=== PATIENT | female | born 1990 | race Caucasian/White ===

== ENCOUNTER 2022-12-02 07:21 | Emergency (ER) | payer BC ==
[~2022-12-02] VITALS: Wt 71.8 kg
[2022-12-02 07:40] LABS: BILIRUBIN Negative (Negative); BLOOD Trace-Lysed (Negative); CLARITY Cloudy (Clear); COLOR Yellow (Yellow); GLUCOSE Negative (Negative); KETONE Negative (Negative); LEUKO ESTERASE 2+ (Negative); NITRITE Negative (Negative); PH 5.5 (4.5-8.0)
[2022-12-02 07:47] LABS: URINE AMPHETAMINES Negative (1000ng/ml); URINE BARBITURATES Negative (200ng/ml); URINE BENZODIAZEPINES Positive (200ng/ml); URINE CANNABINOIDS (THC) Positive (50ng/ml); URINE COCAINE Negative (300ng/ml); URINE METHADONE Negative (300ng/ml); URINE OPIATES Negative (300ng/ml); URINE PHENCYCLIDINE Negative (25ng/ml)
[2022-12-02 07:53] LABS: WBC TNTC wbc/hpf (0-5)
[2022-12-02 08:16] LABS: BASO % 0.3 % (0.0-1.0); EOS # 0.1 10*3/uL (0.0-0.4); EOS % 1.3 % (1.0-4.0); HEMATOCRIT 37.3 % (37.0-47.0); LYMPH # 1.7 10*3/uL (1.3-4.4); LYMPH % 18.3 % (27.0-41.0); MEAN CELL VOLUME 90.3 fl (81.0-99.0); MEAN CORPUSCULAR HGB 29.5 pg (27.0-31.0); MEAN CORPUSCULAR HGB CONC 32.7 g/dl (33.0-37.0); MEAN PLATELET VOLUME 10.3 fl (9.6-12.3); MONO # 0.8 10*3/uL (0.1-1.0); MONO % 8.7 % (3.0-9.0); NEUT # 6.6 10*3/uL (2.3-7.9); NEUT % 71.3 % (47.0-73.0); PLATELET COUNT AUTOMATED 310 10*3/uL (130-400); RED BLOOD COUNT 4.13 10*6/uL (4.10-5.10); RED CELL DISTRI WIDTH 12.7 % (0-14.5); WHITE BLOOD COUNT 9.2 10*3/uL (4.8-10.8)
[2022-12-02 08:47] LABS: ALKALINE PHOSPHATASE 84 U/L (46-116); BUN 10 mg/dl (9-23); CHLORIDE 106 mmol/L (98-107); POTASSIUM 3.6 mmol/L (3.4-5.1); SGPT/ALT 24 U/L (10-49); TOTAL PROTEIN 7.3 gm/dL (6.0-8.0)
[2022-12-02 08:53] LABS: ETHYL ALCOHOL < 3.0 mg/dl (<3)
== END 2022-12-02 18:28 ==
LOC: ED 07:21
PROVIDERS: Student in an Organized Health Care Education/Training Program
DX: F29 Unspecified psychosis not due to a substance or known physiological condition (principal); Z88.6 Allergy status to analgesic agent; Z88.1 Allergy status to other antibiotic agents; Z88.0 Allergy status to penicillin; Z91.018 Allergy to other foods; Z88.8 Allergy status to other drugs, medicaments and biological substances; Z79.899 Other long term (current) drug therapy; Z20.822 Contact with and (suspected) exposure to COVID-19

== ENCOUNTER 2022-12-15 13:31 | Emergency (ER) | payer BC ==
[~2022-12-15] VITALS: Ht 165.1 cm; Wt 63.5 kg
[2022-12-15 15:32] LABS: BASO % 0.4 % (0.0-1.0); EOS # 0.3 10*3/uL (0.0-0.4); EOS % 3.4 % (1.0-4.0); HEMATOCRIT 36.2 % (37.0-47.0); LYMPH # 2.3 10*3/uL (1.3-4.4); LYMPH % 25.5 % (27.0-41.0); MEAN CELL VOLUME 88.7 fl (81.0-99.0); MEAN CORPUSCULAR HGB 29.4 pg (27.0-31.0); MEAN CORPUSCULAR HGB CONC 33.1 g/dl (33.0-37.0); MEAN PLATELET VOLUME 10.5 fl (9.6-12.3); MONO # 0.7 10*3/uL (0.1-1.0); MONO % 7.5 % (3.0-9.0); NEUT # 5.7 10*3/uL (2.3-7.9); PLATELET COUNT AUTOMATED 285 10*3/uL (130-400); RED BLOOD COUNT 4.08 10*6/uL (4.10-5.10); RED CELL DISTRI WIDTH 12.6 % (0-14.5); WHITE BLOOD COUNT 9.1 10*3/uL (4.8-10.8)
[2022-12-15] MEDS ORDERED: TRAMADOL HCL50 MG PO (15:42)
[2022-12-15] MEDS ORDERED: ABILIFY10 MG PO (15:42)
[2022-12-15] MEDS ORDERED: REGLAN10 M1 PO (15:42)
[2022-12-15 15:55] LABS: ALKALINE PHOSPHATASE 83 U/L (46-116); BUN 17 mg/dl (9-23); CHLORIDE 104 mmol/L (98-107); POTASSIUM 3.7 mmol/L (3.4-5.1); SGPT/ALT 27 U/L (10-49)
== END 2022-12-15 16:28 | disposition home or self-care (01) ==
LOC: ED 13:31
PROVIDERS: Emergency Medicine
DX: R10.9 Unspecified abdominal pain (principal); R11.2 Nausea with vomiting, unspecified; R19.7 Diarrhea, unspecified; Z88.8 Allergy status to other drugs, medicaments and biological substances; Z88.6 Allergy status to analgesic agent; Z88.0 Allergy status to penicillin; Z88.1 Allergy status to other antibiotic agents; Z91.018 Allergy to other foods

== ENCOUNTER 2022-12-19 14:33 | Emergency (ER) | payer BC ==
[~2022-12-19] VITALS: Ht 162.5 cm; Wt 65.8 kg
[~2022-12-19 14:33] MED LIST: ABILIFY10 MG PO; REGLAN10 M1 PO; TRAMADOL HCL50 MG PO
[2022-12-19] MEDS ORDERED: ONDANSETRON4 MG SL (15:52)
[2022-12-19] MEDS ORDERED: TRAMADOL HCL50 MG PO (15:52)
== END 2022-12-19 15:59 | disposition home or self-care (01) ==
LOC: ED 14:33
DX: K50.90 Crohn's disease, unspecified, without complications (principal); Z76.5 Malingerer [conscious simulation]; Z88.6 Allergy status to analgesic agent; Z88.0 Allergy status to penicillin; Z88.1 Allergy status to other antibiotic agents; Z91.018 Allergy to other foods; Z88.8 Allergy status to other drugs, medicaments and biological substances; Z98.890 Other specified postprocedural states

== ENCOUNTER 2023-02-05 17:43 | Emergency (ER) | payer BC ==
[~2023-02-05] VITALS: Ht 165.1 cm; Wt 68.0 kg
[~2023-02-05 17:43] MED LIST changes: +ONDANSETRON4 MG SL
[2023-02-05] MEDS ORDERED: NORVASC5 MG PO (18:46)
[2023-02-05] MEDS ORDERED: TYLENOL EXTRA500 MG PO (18:46)
[2023-02-05] MEDS ORDERED: CYCLOBENZAPRINE10 MG PO (18:47)
[2023-02-05] MEDS ORDERED: PANTOPRAZOLE SO40 MG PO (18:47)
[2023-02-05] MEDS ORDERED: ONDANSETRON8 MG PO (18:47)
[2023-02-05] MEDS ORDERED: CIPRO500 MG PO (18:48)
[2023-02-05] MEDS ORDERED: COMPAZINE5 M3 PO (18:48)
[2023-02-05] MEDS ORDERED: Carafate1 GM PO (18:48)
[2023-02-05] MEDS ORDERED: TRAMADOL HCL E200 MG PO (18:48)
[2023-02-05] MEDS ORDERED: RITALIN LA20 MG PO (18:49)
[2023-02-05] MEDS ORDERED: VENT7GM INH (18:49)
== END 2023-02-05 20:37 | disposition left against medical advice (07) ==
LOC: ED 17:43
DX: K62.5 Hemorrhage of anus and rectum (principal); R19.7 Diarrhea, unspecified; R11.10 Vomiting, unspecified; Z53.21 Procedure and treatment not carried out due to patient leaving prior to being seen by health care provider

== ENCOUNTER 2023-02-06 21:34 | Emergency (ER) | payer BC ==
[~2023-02-06] VITALS: Ht 167.6 cm; Wt 69.4 kg
[~2023-02-06 21:34] MED LIST changes: +CIPRO500 MG PO; +COMPAZINE5 M3 PO; +CYCLOBENZAPRINE10 MG PO; +Carafate1 GM PO; +NORVASC5 MG PO; +ONDANSETRON8 MG PO; +PANTOPRAZOLE SO40 MG PO; +RITALIN LA20 MG PO; +TRAMADOL HCL E200 MG PO; +TYLENOL EXTRA500 MG PO; +VENT7GM INH
== END 2023-02-06 22:53 | disposition left against medical advice (07) ==
LOC: ED 21:34
DX: Z33.1 Pregnant state, incidental (principal); M25.551 Pain in right hip; Z88.8 Allergy status to other drugs, medicaments and biological substances; Z88.6 Allergy status to analgesic agent; Z88.0 Allergy status to penicillin; Z88.1 Allergy status to other antibiotic agents; Z91.018 Allergy to other foods

== ENCOUNTER → 2023-02-14 | Outpatient (CLI) | payer BC | END | disposition home or self-care (01) | LOC: US 13:05 | PROVIDERS: ATTEND Family Medicine | DX: O09.91 Supervision of high risk pregnancy, unspecified, first trimester (principal); Z3A.09 9 weeks gestation of pregnancy ==

== ENCOUNTER → 2023-05-02 | Outpatient (CLI) | payer MEDICAID ==
[2023-05-02 10:26] LABS: HEMATOCRIT 37.6 % (37.0-47.0); MEAN CELL VOLUME 93.3 fl (81.0-99.0); MEAN CORPUSCULAR HGB 30.5 pg (27.0-31.0); MEAN CORPUSCULAR HGB CONC 32.7 g/dl (33.0-37.0); MEAN PLATELET VOLUME 10.3 fl (9.6-12.3); RED BLOOD COUNT 4.03 10*6/uL (4.10-5.10); RED CELL DISTRI WIDTH 12.6 % (0-14.5); WHITE BLOOD COUNT 10.7 10*3/uL (4.8-10.8)
[2023-05-02 11:02] LABS: ALKALINE PHOSPHATASE 78 U/L (46-116); BUN 5 mg/dl (9-23); CHLORIDE 104 mmol/L (98-107); POTASSIUM 4.2 mmol/L (3.4-5.1); SGPT/ALT 12 U/L (5-49); TOTAL PROTEIN 7.3 gm/dL (6.0-8.0)
== END | disposition home or self-care (01) ==
LOC: LAB 10:06
PROVIDERS: ATTEND Family Medicine
DX: R10.9 Unspecified abdominal pain (principal); R53.83 Other fatigue

== ENCOUNTER → 2023-08-30 | Outpatient (CLI) | payer MEDICAID ==
[2023-08-30 11:53] LABS: HEMATOCRIT 37.8 % (37.0-47.0); MEAN CELL VOLUME 86.5 fl (81.0-99.0); MEAN CORPUSCULAR HGB CONC 31.2 g/dl (33.0-37.0); MEAN PLATELET VOLUME 9.2 fl (9.6-12.3); RED BLOOD COUNT 4.37 10*6/uL (4.10-5.10); RED CELL DISTRI WIDTH 13.1 % (0-14.5); WHITE BLOOD COUNT 8.6 10*3/uL (4.8-10.8)
[2023-08-30 12:20] LABS: ALKALINE PHOSPHATASE 291 U/L (46-116); BUN 15 mg/dl (9-23); CHLORIDE 106 mmol/L (98-107); POTASSIUM 3.9 mmol/L (3.4-5.1); SGPT/ALT 31 U/L (5-49); TOTAL PROTEIN 7.7 gm/dL (6.0-8.0)
[2023-08-30 13:22] LABS: VITAMIN D, 25-HYDROXY 25.6 ng/mL (30-100)
== END ==
LOC: LAB 11:06
PROVIDERS: ATTEND Family Medicine
DX: E55.9 Vitamin D deficiency, unspecified (principal); E53.8 Deficiency of other specified B group vitamins; D64.9 Anemia, unspecified

== ENCOUNTER 2023-11-06 19:26 | Emergency (ER) | payer MEDICAID ==
[~2023-11-06] VITALS: Ht 165.1 cm; Wt 59.9 kg
[2023-11-06] MEDS ORDERED: FAMOTIDINE 50 ML IV ONE ×2 (19:35→19:40)
[2023-11-06] MEDS ORDERED: methylPREDNISolone sod succ 125 MG VIAL IV ONE (19:35)
[2023-11-06] MEDS ORDERED: SODIUM CHLORIDE 0.9% 1,000 ML IV ONE (19:35)
[2023-11-06] MEDS ORDERED: DIAZEPAM 5 MG TAB PO ONE (20:15)
[2023-11-06] MEDS ORDERED: LORazepam 1 MG TAB PO ONE (20:15)
== END 2023-11-06 21:25 | disposition home or self-care (01) ==
LOC: ED 19:26
DX: T63.441A Toxic effect of venom of bees, accidental (unintentional), initial encounter (principal); F41.9 Anxiety disorder, unspecified; Z53.29 Procedure and treatment not carried out because of patient's decision for other reasons; Z88.6 Allergy status to analgesic agent; Z88.0 Allergy status to penicillin; Z88.1 Allergy status to other antibiotic agents; Z88.8 Allergy status to other drugs, medicaments and biological substances; Z91.018 Allergy to other foods; Y92.89 Other specified places as the place of occurrence of the external cause

== ENCOUNTER → 2023-11-26 | Outpatient (CLI) | payer MEDICAID ==
[2023-11-26 17:09] LABS: HEMATOCRIT 36.6 % (37.0-47.0); MEAN CELL VOLUME 86.1 fl (81.0-99.0); MEAN CORPUSCULAR HGB 27.8 pg (27.0-31.0); MEAN CORPUSCULAR HGB CONC 32.2 g/dl (33.0-37.0); RED BLOOD COUNT 4.25 10*6/uL (4.10-5.10); RED CELL DISTRI WIDTH 15.9 % (0-14.5); WHITE BLOOD COUNT 9.6 10*3/uL (4.8-10.8)
[2023-11-26 17:35] LABS: ALKALINE PHOSPHATASE 78 U/L (46-116); BUN 16 mg/dl (9-23); CHLORIDE 104 mmol/L (98-107); POTASSIUM 3.9 mmol/L (3.4-5.1); SGPT/ALT 29 U/L (5-49); TOTAL PROTEIN 8.1 gm/dL (6.0-8.0)
[2023-11-26 17:40] LABS: BETA-HCG, QUANT < 3.0 mIU/mL (3-10)
== END | disposition home or self-care (01) ==
LOC: LAB 16:44
PROVIDERS: ATTEND Family Medicine
DX: Z32.01 Encounter for pregnancy test, result positive (principal)

== ENCOUNTER → 2023-11-28 | Outpatient (CLI) | payer MEDICAID ==
[~2023-11-28] MED LIST changes: +ATIVAN1 MG PO; +FAMOTIDINE20 M1 PO; +INTUNIV1 MG PO; +NIFEDIPINE ER30 M1 PO; +OMEPRAZOLE40 MG PO; +TRILEPTAL150 MG PO
[2023-11-28 14:57] LABS: HEMATOCRIT 38.6 % (37.0-47.0); MEAN CORPUSCULAR HGB CONC 31.6 g/dl (33.0-37.0); MEAN PLATELET VOLUME 10.3 fl (9.6-12.3); RED BLOOD COUNT 4.35 10*6/uL (4.10-5.10); RED CELL DISTRI WIDTH 15.1 % (0-14.5); WHITE BLOOD COUNT 9.7 10*3/uL (4.8-10.8)
[2023-11-28 14:58] LABS: MEAN CELL VOLUME 88.7 fl (81.0-99.0)
[2023-11-28 15:28] LABS: ALKALINE PHOSPHATASE 78 U/L (46-116); BUN 13 mg/dl (9-23); CHLORIDE 106 mmol/L (98-107); SGPT/ALT 18 U/L (5-49); TOTAL PROTEIN 8.2 gm/dL (6.0-8.0)
[2023-11-28 15:29] LABS: BETA-HCG, QUANT < 3.0 mIU/mL (3-10)
== END | disposition home or self-care (01) ==
LOC: LAB 14:11
PROVIDERS: ATTEND Family Medicine
DX: Z32.00 Encounter for pregnancy test, result unknown (principal)

== ENCOUNTER 2023-11-30 17:45 | Emergency (ER) | payer MEDICAID ==
[~2023-11-30] VITALS: Wt 59.0 kg
[~2023-11-30 17:45] MED LIST changes: -ATIVAN1 MG PO; -FAMOTIDINE20 M1 PO; -INTUNIV1 MG PO; -NIFEDIPINE ER30 M1 PO; -OMEPRAZOLE40 MG PO; -TRILEPTAL150 MG PO
[2023-11-30] MEDS ORDERED: DIAZEPAM 10 MG/2 ML SYR IM PRN (18:05)
[2023-11-30] MEDS ORDERED: diphenhydrAMINE hydrochloride 50 MG/ML VIAL IM PRN (18:05)
[2023-11-30 18:26] LABS: BASO # 0.1 10*3/uL (0.0-0.1); BASO % 0.6 % (0.0-1.0); EOS # 0.2 10*3/uL (0.0-0.4); EOS % 2.5 % (1.0-4.0); HEMATOCRIT 34.8 % (37.0-47.0); LYMPH # 2.1 10*3/uL (1.3-4.4); LYMPH % 25.1 % (27.0-41.0); MEAN CELL VOLUME 91.8 fl (81.0-99.0); MEAN CORPUSCULAR HGB 27.4 pg (27.0-31.0); MEAN CORPUSCULAR HGB CONC 29.9 g/dl (33.0-37.0); MEAN PLATELET VOLUME 10.8 fl (9.6-12.3); MONO # 0.9 10*3/uL (0.1-1.0); MONO % 10.2 % (3.0-9.0); NEUT # 5.2 10*3/uL (2.3-7.9); NEUT % 61.4 % (47.0-73.0); PLATELET COUNT AUTOMATED 279 10*3/uL (130-400); RED BLOOD COUNT 3.79 10*6/uL (4.10-5.10); RED CELL DISTRI WIDTH 14.8 % (0-14.5); WHITE BLOOD COUNT 8.4 10*3/uL (4.8-10.8)
[2023-11-30 18:38] LABS: ACT PARTIAL THROMBO TIME 26.9 SECONDS (20.0-32.1)
[2023-11-30 18:54] LABS: ALKALINE PHOSPHATASE 70 U/L (46-116); BUN 15 mg/dl (9-23); CHLORIDE 110 mmol/L (98-107); CPK 107 U/L (34-171); LIPASE 28 U/L (12-53); POTASSIUM 3.5 mmol/L (3.4-5.1); SGPT/ALT 11 U/L (5-49); TOTAL PROTEIN 7.5 gm/dL (6.0-8.0)
[2023-11-30 18:59] LABS: ETHYL ALCOHOL < 3.0 mg/dl (<3)
[2023-11-30] MEDS ORDERED: Haloperidol Lactate 5 MG/ML AMP IM ONE (19:10)
[2023-11-30] MEDS ORDERED: TRILEPTAL150 MG PO (20:07)
[2023-11-30] MEDS ORDERED: INTUNIV1 MG PO (20:07)
[2023-11-30] MEDS ORDERED: ATIVAN1 MG PO (20:08)
[2023-11-30] MEDS ORDERED: NIFEDIPINE ER30 M1 PO (20:09)
[2023-11-30] MEDS ORDERED: OMEPRAZOLE40 MG PO (20:11)
[2023-11-30] MEDS ORDERED: FAMOTIDINE20 M1 PO (20:11)
[2023-12-01 06:50] LABS: BILIRUBIN Negative (Negative); BLOOD Negative (Negative); CLARITY Clear (Clear); COLOR Yellow (Yellow); GLUCOSE Negative (Negative); KETONE Negative (Negative); LEUKO ESTERASE Trace (Negative); NITRITE Negative (Negative); PH 5.5 (4.5-8.0); SPECIFIC GRAVITY 1.025 (1.001-1.030)
[2023-12-01 06:58] LABS: URINE AMPHETAMINES Positive (1000ng/ml); URINE BARBITURATES Negative (200ng/ml); URINE BENZODIAZEPINES Positive (200ng/ml); URINE CANNABINOIDS (THC) Positive (50ng/ml); URINE COCAINE Negative (300ng/ml); URINE METHADONE Negative (300ng/ml); URINE OPIATES Negative (300ng/ml); URINE PHENCYCLIDINE Negative (25ng/ml)
[2023-12-01 09:04] LABS: BACTERIA 1+; MUCOUS 2+; WBC 16-20 wbc/hpf (0-5)
== END 2023-12-01 13:04 | disposition home or self-care (01) ==
LOC: ED 17:45
PROVIDERS: Internal Medicine
DX: R41.82 Altered mental status, unspecified (principal); F15.10 Other stimulant abuse, uncomplicated; Z88.6 Allergy status to analgesic agent; Z88.0 Allergy status to penicillin; Z88.1 Allergy status to other antibiotic agents; Z91.018 Allergy to other foods; Z88.8 Allergy status to other drugs, medicaments and biological substances; Z88.5 Allergy status to narcotic agent

== ENCOUNTER 2024-01-05 13:59 | Emergency (ER) | payer MEDICAID ==
[~2024-01-05] VITALS: Ht 165.1 cm; Wt 68.0 kg
[~2024-01-05 13:59] MED LIST changes: +ATIVAN1 MG PO; +FAMOTIDINE20 M1 PO; +INTUNIV1 MG PO; +NIFEDIPINE ER30 M1 PO; +OMEPRAZOLE40 MG PO; +TRILEPTAL150 MG PO
[2024-01-05 14:42] LABS: BILIRUBIN Negative (Negative); BLOOD 2+ (Negative); CLARITY Turbid (Clear); COLOR Yellow (Yellow); GLUCOSE Negative (Negative); KETONE Negative (Negative); LEUKO ESTERASE 3+ (Negative); NITRITE Negative (Negative); PH 5.5 (4.5-8.0); SPECIFIC GRAVITY 1.015 (1.001-1.030); UROBILINOGEN 0.2 E.U./dl (0.0-1.0)
[2024-01-05 14:53] LABS: WBC TNTC wbc/hpf (0-5)
[2024-01-05 15:09] LABS: BASO # 0.1 10*3/uL (0.0-0.1); BASO % 0.5 % (0.0-1.0); EOS # 0.5 10*3/uL (0.0-0.4); EOS % 4.6 % (1.0-4.0); HEMATOCRIT 39.2 % (37.0-47.0); LYMPH # 1.9 10*3/uL (1.3-4.4); LYMPH % 16.7 % (27.0-41.0); MEAN CELL VOLUME 91.6 fl (81.0-99.0); MEAN CORPUSCULAR HGB 28.5 pg (27.0-31.0); MEAN CORPUSCULAR HGB CONC 31.1 g/dl (33.0-37.0); MEAN PLATELET VOLUME 10.5 fl (9.6-12.3); MONO # 0.9 10*3/uL (0.1-1.0); MONO % 7.4 % (3.0-9.0); NEUT # 8.2 10*3/uL (2.3-7.9); NEUT % 70.5 % (47.0-73.0); PLATELET COUNT AUTOMATED 267 10*3/uL (130-400); RED BLOOD COUNT 4.28 10*6/uL (4.10-5.10); RED CELL DISTRI WIDTH 13.3 % (0-14.5); WHITE BLOOD COUNT 11.6 10*3/uL (4.8-10.8)
[2024-01-05 15:26] LABS: ALKALINE PHOSPHATASE 74 U/L (46-116); BUN 15 mg/dl (9-23); CHLORIDE 108 mmol/L (98-107); POTASSIUM 3.8 mmol/L (3.4-5.1); SGPT/ALT 11 U/L (5-49); TOTAL PROTEIN 7.6 gm/dL (6.0-8.0)
[2024-01-05] MEDS ORDERED: PYRIDIUM100 MG PO (15:42)
[2024-01-05] MEDS ORDERED: SEPTDS PO (15:42)
[2024-01-08] MEDS ORDERED: CLARITIN10 MG PO (14:27)
[2024-01-08] MEDS ORDERED: XYZAL PO (14:28)
== END 2024-01-05 15:45 | disposition home or self-care (01) ==
LOC: ED 13:59
PROVIDERS: Physician Assistant Medical
DX: N39.0 Urinary tract infection, site not specified (principal); Z88.6 Allergy status to analgesic agent; Z88.0 Allergy status to penicillin; Z88.1 Allergy status to other antibiotic agents; Z91.018 Allergy to other foods; Z88.5 Allergy status to narcotic agent; Z88.8 Allergy status to other drugs, medicaments and biological substances

== ENCOUNTER → 2024-01-12 | Day surgery (SDC) | payer MEDICAID ==
[~2024-01-12] VITALS: Ht 165.1 cm; Wt 65.8 kg
[2024-01-12] VITALS (7 sets, daily range): BP systolic 126–151; BP diastolic 80–98
[~2024-01-12] MED LIST changes: +CLARITIN10 MG PO; +HYDROmorphONE Hydrochloride 0.5 MG/0.5 ML SYRINGE IV SCH; +HYDROmorphONE Hydrochloride 0.5 MG/0.5 ML SYRINGE ONE; +Ketorolac Tromethamine 30 MG/ML VIAL IV ONE; +Lactated Ringer's Solution 1,000 ML IV ONE; +Lactated Ringer's Solution 1,000 ML IV SCH; +Lidocaine Hydrochloride 5 ML VIAL IV ONE; +Midazolam Hydrochloride 2 MG/2 ML VIAL IV ONE; +OXYCODONE5 M1 PO; +Ondansetron Hydrochloride 4 MG/2 ML VIAL IV ONE; +PROPOFOL 200 MG/20 ML VIAL IV ONE; +PYRIDIUM100 MG PO; +ROCURONIUM BROMIDE 50 MG/5 ML SYRINGE IV ONE; +SEPTDS PO; +SEVOFLURANE 250 ML BOT INH ONE; +SUGAMMADEX SODIUM 200 MG/2 ML VIAL IV ONE; +XYZAL PO; +fentaNYL CITRATE 100 MCG/2 ML VIAL IV ONE
== END | disposition home or self-care (01) ==
LOC: SDC 01-08 09:30
PROVIDERS: ATTEND Obstetrics & Gynecology
DX: Z30.2 Encounter for sterilization (principal); I10 Essential (primary) hypertension; G43.109 Migraine with aura, not intractable, without status migrainosus; F41.9 Anxiety disorder, unspecified; G47.30 Sleep apnea, unspecified; Z87.440 Personal history of urinary (tract) infections; Z91.018 Allergy to other foods; Z91.040 Latex allergy status; Z88.0 Allergy status to penicillin; Z88.1 Allergy status to other antibiotic agents; Z88.8 Allergy status to other drugs, medicaments and biological substances; Z79.899 Other long term (current) drug therapy; Z98.890 Other specified postprocedural states

== ENCOUNTER 2024-01-15 17:01 | Emergency (ER) | payer MEDICAID ==
[~2024-01-15] VITALS: Ht 165.1 cm; Wt 65.8 kg
[~2024-01-15 17:01] MED LIST changes: -HYDROmorphONE Hydrochloride 0.5 MG/0.5 ML SYRINGE IV SCH; -HYDROmorphONE Hydrochloride 0.5 MG/0.5 ML SYRINGE ONE; -Ketorolac Tromethamine 30 MG/ML VIAL IV ONE; -Lactated Ringer's Solution 1,000 ML IV ONE; -Lactated Ringer's Solution 1,000 ML IV SCH; -Lidocaine Hydrochloride 5 ML VIAL IV ONE; -Midazolam Hydrochloride 2 MG/2 ML VIAL IV ONE; -OXYCODONE5 M1 PO; -Ondansetron Hydrochloride 4 MG/2 ML VIAL IV ONE; -PROPOFOL 200 MG/20 ML VIAL IV ONE; -ROCURONIUM BROMIDE 50 MG/5 ML SYRINGE IV ONE; -SEVOFLURANE 250 ML BOT INH ONE; -SUGAMMADEX SODIUM 200 MG/2 ML VIAL IV ONE; -fentaNYL CITRATE 100 MCG/2 ML VIAL IV ONE
[2024-01-15] MEDS ORDERED: OXYCODONE5 M1 PO (17:31)
== END 2024-01-15 17:54 | disposition left against medical advice (07) ==
LOC: ED 17:01
DX: G89.18 Other acute postprocedural pain (principal); F41.9 Anxiety disorder, unspecified; Z53.29 Procedure and treatment not carried out because of patient's decision for other reasons; Z88.6 Allergy status to analgesic agent; Z88.0 Allergy status to penicillin; Z88.1 Allergy status to other antibiotic agents; Z91.018 Allergy to other foods; Z88.5 Allergy status to narcotic agent; Z90.49 Acquired absence of other specified parts of digestive tract; Z98.890 Other specified postprocedural states

== ENCOUNTER 2024-05-09 06:45 | Emergency (ER) | payer MEDICAID ==
[~2024-05-09 06:45] MED LIST changes: +OXYCODONE5 M1 PO
[2024-05-09 07:16] LABS: BASO % 0.5 % (0.0-1.0); EOS # 0.2 10*3/uL (0.0-0.4); EOS % 2.7 % (1.0-4.0); MEAN CELL VOLUME 88.1 fl (81.0-99.0); MEAN PLATELET VOLUME 10.2 fl (9.6-12.3); MONO # 0.7 10*3/uL (0.1-1.0); MONO % 9.1 % (3.0-9.0); NEUT # 4.8 10*3/uL (2.3-7.9); NEUT % 59.7 % (47.0-73.0); PLATELET COUNT AUTOMATED 291 10*3/uL (130-400); RED CELL DISTRI WIDTH 12.4 % (0-14.5); WHITE BLOOD COUNT 8.1 10*3/uL (4.8-10.8)
[2024-05-09 07:54] LABS: URINE AMPHETAMINES Positive (1000ng/ml); URINE BARBITURATES Negative (200ng/ml); URINE BENZODIAZEPINES Negative (200ng/ml); URINE CANNABINOIDS (THC) Positive (50ng/ml); URINE COCAINE Negative (300ng/ml); URINE METHADONE Negative (300ng/ml); URINE OPIATES Negative (300ng/ml); URINE PHENCYCLIDINE Negative (25ng/ml)
[2024-05-09 07:56] LABS: BUN 10 mg/dl (9-23); CHLORIDE 107 mmol/L (98-107); POTASSIUM 3.3 mmol/L (3.4-5.1)
[2024-05-09 07:58] LABS: BETA-HCG, QUANT < 3.0 mIU/mL (3-10); ETHYL ALCOHOL < 3.0 mg/dl (<3)
[2024-05-09] MEDS ORDERED: POTASSIUM CHLORIDE 20 MEQ TAB PO ONE (08:05)
== END 2024-05-09 08:11 | disposition home or self-care (01) ==
LOC: ED 06:45
PROVIDERS: Internal Medicine
DX: S09.8XXA Other specified injuries of head, initial encounter (principal); E87.6 Hypokalemia; R10.2 Pelvic and perineal pain; F15.10 Other stimulant abuse, uncomplicated; Z88.6 Allergy status to analgesic agent; Z88.8 Allergy status to other drugs, medicaments and biological substances; Z88.0 Allergy status to penicillin; Z88.1 Allergy status to other antibiotic agents; Z91.018 Allergy to other foods; Z88.5 Allergy status to narcotic agent; Z90.49 Acquired absence of other specified parts of digestive tract; Z98.890 Other specified postprocedural states; W19.XXXA Unspecified fall, initial encounter; Y93.89 Activity, other specified; Y92.89 Other specified places as the place of occurrence of the external cause; Y99.8 Other external cause status

== ENCOUNTER 2024-07-24 22:24 | Emergency (ER) | payer MEDICAID ==
[~2024-07-24] VITALS: Ht 162.6 cm; Wt 63.5 kg
[2024-07-24 22:50] LABS: BILIRUBIN Negative (Negative); BLOOD Negative (Negative); CLARITY Clear (Clear); COLOR Yellow (Yellow); GLUCOSE Negative (Negative); KETONE 2+ (Negative); LEUKO ESTERASE 1+ (Negative); NITRITE Negative (Negative); SPECIFIC GRAVITY 1.015 (1.001-1.030); UROBILINOGEN 0.2 E.U./dl (0.0-1.0)
[2024-07-24 22:56] LABS: BACTERIA 1+; MUCOUS 1+; RBC 0-2 rbc/hpf (0-2); WBC 16-20 wbc/hpf (0-5)
[2024-07-24 22:57] LABS: URINE AMPHETAMINES Positive (1000ng/ml); URINE BARBITURATES Negative (200ng/ml); URINE BENZODIAZEPINES Negative (200ng/ml); URINE CANNABINOIDS (THC) Positive (50ng/ml); URINE COCAINE Negative (300ng/ml); URINE METHADONE Negative (300ng/ml); URINE OPIATES Negative (300ng/ml); URINE PHENCYCLIDINE Negative (25ng/ml)
== END 2024-07-24 23:04 | disposition left against medical advice (07) ==
LOC: ED 22:24
PROVIDERS: Internal Medicine
DX: R41.82 Altered mental status, unspecified (principal); F17.200 Nicotine dependence, unspecified, uncomplicated; Z53.29 Procedure and treatment not carried out because of patient's decision for other reasons; Z88.8 Allergy status to other drugs, medicaments and biological substances; Z88.6 Allergy status to analgesic agent; Z88.0 Allergy status to penicillin; Z91.018 Allergy to other foods; Z79.899 Other long term (current) drug therapy; Z90.49 Acquired absence of other specified parts of digestive tract; Z98.890 Other specified postprocedural states

== ENCOUNTER 2024-07-25 10:55 | Emergency (ER) | payer MEDICAID ==
[2024-07-25] MEDS ORDERED: Haloperidol Lactate 5 MG/ML AMP IM ONE (11:00)
[2024-07-25] MEDS ORDERED: diazePAM 10 MG/2 ML SYR IM ONE (11:00)
[2024-07-25 12:12] LABS: BILIRUBIN Negative (Negative); BLOOD Negative (Negative); CLARITY Clear (Clear); COLOR Yellow (Yellow); GLUCOSE Negative (Negative); KETONE Trace (Negative); LEUKO ESTERASE Trace (Negative); NITRITE Negative (Negative); PH 6.5 (4.5-8.0); UROBILINOGEN 0.2 E.U./dl (0.0-1.0)
[2024-07-25 12:13] LABS: BASO % 0.6 % (0.0-1.0); EOS # 0.4 10*3/uL (0.0-0.4); EOS % 5.1 % (1.0-4.0); HEMATOCRIT 38.9 % (37.0-47.0); MEAN CELL VOLUME 92.8 fl (81.0-99.0); MEAN CORPUSCULAR HGB 29.4 pg (27.0-31.0); MEAN CORPUSCULAR HGB CONC 31.6 g/dl (33.0-37.0); MEAN PLATELET VOLUME 10.1 fl (9.6-12.3); MONO # 0.6 10*3/uL (0.1-1.0); MONO % 7.7 % (3.0-9.0); NEUT # 4.7 10*3/uL (2.3-7.9); NEUT % 65.6 % (47.0-73.0); PLATELET COUNT AUTOMATED 326 10*3/uL (130-400); RED BLOOD COUNT 4.19 10*6/uL (4.10-5.10); RED CELL DISTRI WIDTH 11.9 % (0-14.5); WHITE BLOOD COUNT 7.1 10*3/uL (4.8-10.8)
[2024-07-25 12:20] LABS: URINE AMPHETAMINES Positive (1000ng/ml); URINE BARBITURATES Negative (200ng/ml); URINE BENZODIAZEPINES Negative (200ng/ml); URINE CANNABINOIDS (THC) Negative (50ng/ml); URINE COCAINE Negative (300ng/ml); URINE METHADONE Negative (300ng/ml); URINE OPIATES Negative (300ng/ml); URINE PHENCYCLIDINE Negative (25ng/ml)
[2024-07-25 12:23] LABS: BACTERIA 1+
[2024-07-25 12:32] LABS: BUN 8 mg/dl (9-23); CHLORIDE 106 mmol/L (98-107); CPK 334 U/L (34-171); POTASSIUM 3.5 mmol/L (3.4-5.1)
[2024-07-25 12:35] LABS: ETHYL ALCOHOL < 3.0 mg/dl (<3)
== END 2024-07-25 21:21 | disposition short-term general hospital (02) ==
LOC: ED 10:55
PROVIDERS: Emergency Medicine
DX: F31.9 Bipolar disorder, unspecified (principal); F19.10 Other psychoactive substance abuse, uncomplicated; F15.10 Other stimulant abuse, uncomplicated; Z88.6 Allergy status to analgesic agent; Z88.0 Allergy status to penicillin; Z88.1 Allergy status to other antibiotic agents; Z91.018 Allergy to other foods; Z88.8 Allergy status to other drugs, medicaments and biological substances; Z79.899 Other long term (current) drug therapy; Z90.49 Acquired absence of other specified parts of digestive tract; Z98.890 Other specified postprocedural states